=== PATIENT | female | born 1955 ===

== ENCOUNTER 2022-09-18 13:30 | Outpatient (CLI) | payer OTHER | END 2022-09-18 14:17 | disposition home or self-care (01) | LOC: RAD 13:30 | PROVIDERS: ATTEND Orthopaedic Surgery | DX: M25.561 Pain in right knee (principal); M25.562 Pain in left knee ==

== ENCOUNTER 2025-04-06 10:44 | Outpatient (CLI) | payer OTHER | END 2025-04-06 10:46 | disposition home or self-care (01) | LOC: RAD 10:44 | PROVIDERS: ATTEND Orthopaedic Surgery | DX: M25.551 Pain in right hip (principal); M25.552 Pain in left hip; M25.561 Pain in right knee; M25.562 Pain in left knee ==

== ENCOUNTER 2025-04-06 14:10 | Outpatient (CLI) | payer OTHER | END 2025-04-06 14:16 | disposition home or self-care (01) | LOC: RAD 14:10 | PROVIDERS: ATTEND Orthopaedic Surgery | DX: M17.0 Bilateral primary osteoarthritis of knee (principal); M54.50 Low back pain, unspecified ==